=== PATIENT | female | born 1935 | race Caucasian/White ===

== ENCOUNTER → 2018-07-03 | Outpatient (CLI) | payer OTHER, MEDICARE | END | disposition home or self-care (01) | LOC: BMCIMAGING 17:30 | PROVIDERS: ATTEND Family Medicine | DX: R91.8 Other nonspecific abnormal finding of lung field (principal) ==

== ENCOUNTER 2018-07-09 11:24 | Emergency (ER) | payer OTHER, MEDICARE ==
[2018-07-09 12:59] LABS: PLATELET COUNT 275 10^3/uL (150-400)
--- NOTE | 2018-07-09 13:26 | EDPHY ---
H & P Stated Complaint: c/o cough x 8 days, fever x 7 days Time Seen by Provider: 07/09/18 12:31 HPI/ROS: Chief complaint: Cold symptoms History of present illness: This is an 82-year-old female who is visiting [place] from [place] for the holidays who presents with family for cold symptoms. She has been sick for the last week. She has had low-grade fevers, persistent cough with copious mucus production. She has an underlying history of COPD. 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 If had increased her oxygen to 2.5 liters/minute to keep her above 90%. They do have a pulse oximetry of home. No report of prep dyspnea, no hemoptysis, no pain or swelling some leg. Review of systems: A 10 point review of systems was obtained and other than described above was negative - Medical/Surgical History Hx Asthma: No Hx Chronic Respiratory Disease: Yes Hx Diabetes: No Hx Cardiac Disease: Yes Hx Renal Disease: No Hx Cirrhosis: No Hx Alcoholism: No Hx HIV/AIDS: No Hx Splenectomy or Spleen Trauma: No Other PMH: Dyschromia, Asteatosis Cutis, Epidermoid Cyst, Thyroid Nodule, Alopecia, Fibromyalgia, Neuropathy, hyperkeratosis, Basal cell CA - lesions removed, Insomnia, Chronic Fatigue, HTN, OA, Migraine, Anxiety, Depression, Lyme Disease, copd, Herpes Zoster, Appy,parathyroidectomy - Social History Smoking Status: Former smoker - Physical Exam Exam: General Appearance: Alert, no distress. Eyes: Pupils equal and round no pallor or injection. ENT, Mouth: Tympanic membranes, external auditory canals, external ears and surrounding soft tissue including over the mastoids are unremarkable. Nasopharynx is not injected. There is no rhinorrhea. Oropharynx is not injected. There is no edema. There is no exudate. There is no asymmetry. The uvula is midline. No elevation of the tongue. There is no hoarseness, no drooling, no trismus, no stridor. Respiratory: The patient is talking in full sentences. Occasional rhonchi, no rales or wheezing. Cardiovascular: Regular rate and rhythm. Neurological: Alert and oriented x4. No meningismus. Skin: Warm and dry, no rashes. Musculoskeletal: Neck is supple nontender. Extremities are symmetrical, full range of motion. Psychiatric: Patient is oriented X 3, there is no agitation. Constitutional: Initial Vital Signs Temperature (C) 37.5 C 07/09/18 11:31 Heart Rate 101 H 07/09/18 11:31 Respiratory Rate 20 07/09/18 11:31 Blood Pressure 152/82 H 07/09/18 11:31 O2 Sat (%) 90 L 07/09/18 11:31 O2 Delivery Mode Nasal Cannula O2 (L/minute) 2 Allergies/Adverse Reactions: alendronate sodium [From Fosamax] Allergy (Verified 04/01/16 08:14) azithromycin Allergy (Verified 04/01/16 08:14) bupivacaine HCl [From Marcaine] Allergy (Verified 04/01/16 08:14) bupropion HCl [From Wellbutrin] Allergy (Verified 04/01/16 08:14) calcium Allergy (Verified 04/01/16 08:14) ciprofloxacin [From Cipro] Allergy (Verified 04/01/16 08:14) ciprofloxacin HCl [From Cipro] Allergy (Verified 04/01/16 08:14) clindamycin Allergy (Verified 04/01/16 08:14) epinephrine Allergy (Verified 04/01/16 08:14) escitalopram oxalate [From Lexapro] Allergy (Verified 04/01/16 08:14) famciclovir [From Famvir] Allergy (Verified 04/01/16 08:14) fentanyl Allergy (Verified 04/01/16 08:14) fluticasone propionate [From Advair Diskus] Allergy (Verified 04/01/16 08:14) gabapentin [From Neurontin] Allergy (Verified 04/01/16 08:14) guaifenesin [From Robitussin] Allergy (Verified 04/01/16 08:14) hydrocodone Allergy (Verified 04/01/16 08:14) hydrocortisone Allergy (Verified 04/01/16 08:14) ibuprofen [From Advil] Allergy (Verified 04/01/16 08:14) ketamine Allergy (Verified 04/01/16 08:14) lansoprazole [From Prevacid] Allergy (Verified 04/01/16 08:14) metoclopramide HCl [From Reglan] Allergy (Verified 04/01/16 08:14) metoprolol succinate [From Toprol XL] Allergy (Verified 04/01/16 08:14) metronidazole [From Flagyl] Allergy (Verified 04/01/16 08:14) minocycline Allergy (Verified 04/01/16 08:14) naproxen [From Naprosyn] Allergy (Verified 04/01/16 08:14) nitrofurantoin [From Macrobid] Allergy (Verified 04/01/16 08:14) nitrofurantoin macrocrystalline [From Macrobid] Allergy (Verified 04/01/16 08:14 ) pantoprazole sodium [From Protonix] Allergy (Verified 04/01/16 08:14) penicillin V Allergy (Verified 04/01/16 08:14) prednisone Allergy (Verified 04/01/16 08:14) rabeprazole sodium [From Aciphex] Allergy (Verified 04/01/16 08:14) ranitidine HCl [From Zantac] Allergy (Verified 04/01/16 08:14) salmeterol xinafoate [From Advair Diskus] Allergy (Verified 04/01/16 08:14) sertraline HCl [From Zoloft] Allergy (Verified 04/01/16 08:14) sulfamethoxazole [From Bactrim] Allergy (Verified 04/01/16 08:14) trimethoprim [From Bactrim] Allergy (Verified 04/01/16 08:14) Home Medications: Medication Instructions Recorded Aspirin EC [Aspirin EC 81 mg (*)] 81 mg PO DAILY 04/01/16 Anoro Ellipta 62.5-25 Mcg INH 07/09/18 Cefdinir [Omnicef (*)] 300 mg PO BID 7 Days cap 07/09/18 Valium 2 MG (*) 07/09/18 Medical Decision Making - Diagnostics Imaging Results: Imaging Impressions Chest X-Ray 07/09/18 11:54 Impression: Improvement in right lung apex haziness which may have represented an area of pneumonitis. No new process. Imaging: I viewed and interpreted images myself ED Course/Re-evaluation: Patient is discussed with my secondary supervising physician Dr. Bahman Poon. Patient presents to the emergency department for persistent cold symptoms. Ultimately I believe she has a bronchitis causing a mild COPD exacerbation. Unfortunately patient has extensive allergies to medications. She does not do well with albuterol. She is allergic to steroids. I do believe given the persistence of symptoms she warrants antibiotic therapy, she agrees. She does have multiple antibiotic allergies. After discussion with patient and reviewing with Dr. Poon we have decided to start her on Omnicef. I have offered patient admission to the hospital for further evaluation and care, she has declined. She is competent to make this decision. Home care is discussed including continued use oxygen as prescribed by her transitional kindergarten teacher and taking antibiotics. I have had a lengthy discussion with her and her family that if symptoms worsen or new symptoms develop they are to return immediately to the emergency department. They voiced understanding and agreement with plan. Differential Diagnosis: Included but not limited to pneumonia, bronchitis, COPD exacerbation, influenza - Data Points Laboratory Results: Laboratory Results 07/09/18 12:05 07/09/18 12:05 07/09/18 07/09/18 12: 12:05 WBC 13.98 10^3/uL H 10^3/uL (3.80-9.50) RBC 4.46 10^6/uL 10^6/uL (4.18-5.33) Hgb 14.5 g/dL g/dL (12.6-16.3) Hct 43.7 % % (38.0-47.0) MCV 98.0 fL fL (81.5-99.8) MCH 32.5 pg pg (27.9-34.1) MCHC 33.2 g/dL g/dL (32.4-36.7) RDW 12.7 % % (11.5-15.2) Plt Count 275 10^3/uL 10^3/uL (150-400) MPV 9.6 fL fL (8.7-11.7) Neut % (Auto) 88.9 % H % (39.3-74.2) Lymph % (Auto) 3.9 % L % (15.0-45.0) Reeves % (Auto) 6.2 % % (4.5-13.0) Eos % (Auto) 0.2 % L % (0.6-7.6) Baso % (Auto) 0.4 % % (0.3-1.7) Nucleat RBC Rel Count 0.0 % % (0.0-0.2) Absolute Neuts (auto) 12.43 10^3/uL H 10^3/uL (1.70-6.50) Absolute Lymphs (auto) 0.55 10^3/uL L 10^3/uL (1.00-3.00) Absolute Monos (auto) 0.87 10^3/uL H 10^3/uL (0.30-0.80) Absolute Eos (auto) 0.03 10^3/uL 10^3/uL (0.03-0.40) Absolute Basos (auto) 0.06 10^3/uL 10^3/uL (0.02-0.10) Absolute Nucleated RBC 0.00 10^3/uL 10^3/uL (0-0.01) Immature Gran % 0.4 % % (0.0-1.1) Immature Gran # 0.06 10^3/uL 10^3/uL (0.00-0.10) RBC/WBC/PLT Morphology TNP Platelet Estimate TNP Sodium 137 mEq/L mEq/L (135-145) Potassium 4.0 mEq/L mEq/L (3.5-5.2) Chloride 100 mEq/L mEq/L (97-110) Carbon Dioxide 28 mEq/l mEq/l (22-31) Anion Gap 9 mEq/L mEq/L (6-14) BUN 16 mg/dL mg/dL (7-23) Creatinine 0.6 mg/dL mg/dL (0.6-1.0) Estimated GFR > 60 Glucose 218 mg/dL H mg/dL (70-100) Calcium 8.9 mg/dL mg/dL (8.5-10.4) Total Bilirubin 0.5 mg/dL mg/dL (0.1-1.4) AST 28 IU/L IU/L (14-46) ALT 25 IU/L IU/L (9-52) Alkaline Phosphatase 106 IU/L IU/L (38-126) Total Protein 6.7 g/dL g/dL (6.3-8.2) Albumin 3.7 g/dL g/dL (3.5-5.0) Departure - Departure Disposition: Home, Routine, Self-Care Clinical Impression: Chronic obstructive pulmonary disease with acute exacerbation Acute bronchitis Qualifiers: Bronchitis organism: unspecified organism Qualified Code(s): J20.9 - Acute bronchitis, unspecified Condition: Good Instructions: Cefdinir (By mouth), Acute Bronchitis (ED) Additional Instructions: Follow-up with a primary care doctor for recheck If symptoms worsen or new symptoms develop return to the emergency department for recheck Referrals: NONE *PRIMARY CARE P,. [Primary Care Provider] - As per Instructions Amanda Corley MD [Medical Doctor] - As per Instructions Prescriptions: Cefdinir [Omnicef (*)] 300 mg PO BID 7 Days cap
[2018-07-09] MEDS ORDERED: ACETAMINOPHEN 500 MG TAB PO ONE (13:27)
[2018-07-09 13:54] VITALS: BP 122/78
== END 2018-07-09 13:54 | disposition home or self-care (01) ==
DX: J44.1 Chronic obstructive pulmonary disease with (acute) exacerbation (principal); J20.9 Acute bronchitis, unspecified; M79.7 Fibromyalgia; G62.9 Polyneuropathy, unspecified; I10 Essential (primary) hypertension; A69.20 Lyme disease, unspecified; F41.8 Other specified anxiety disorders; Z85.828 Personal history of other malignant neoplasm of skin; Z87.891 Personal history of nicotine dependence